=== PATIENT | female | born 1945 | race Caucasian/White ===

== ENCOUNTER → 2019-05-18 10:59 | Outpatient (BNVA) | payer MEDICARE, BC, SELFPAY | PROVIDERS: Family Provider Nurse Practitioner Family; PCP Nurse Practitioner Family; Visit Provider Nurse Practitioner Family | DX: R05 Cough (principal); Z12.31 Encounter for screening mammogram for malignant neoplasm of breast; E11.9 Type 2 diabetes mellitus without complications; E05.90 Thyrotoxicosis, unspecified without thyrotoxic crisis or storm; E78.5 Hyperlipidemia, unspecified; M81.0 Age-related osteoporosis without current pathological fracture; I10 Essential (primary) hypertension; J44.9 Chronic obstructive pulmonary disease, unspecified; J30.2 Other seasonal allergic rhinitis; F41.9 Anxiety disorder, unspecified; F32.9 Major depressive disorder, single episode, unspecified; R59.9 Enlarged lymph nodes, unspecified | CPT/HCPCS: 80053; 80061; 82044; 82306; 83036; 84439; 84443; 84481; 85025 ==

== ENCOUNTER 2019-05-28 12:52 | Outpatient (CLI) | payer MEDICARE, BC, SELFPAY ==
--- NOTE | 2019-05-28 13:30 | CT_ITS ---
WS: [id number] CT scan of the chest with IV contrast, additional two-dimensional coronal and sagittal reconstruction was performed. 05/28/2019 Clinical Data: cough Comparison: CT chest abdomen and pelvis, 01/23/2018. DLP: 600.[address] scans at [facility] use at least one of these dose optimization techniques: automat ed exposure control; mA and/or kV adjustment per patient size (includes targeted exams where dose is matched to clinical indication); or iterative reconstruction. Findings: Is a complex nodule of the left lobe of the thyroid unchanged. There are small cysts in the right lob e of the thyroid. No pneumonia or pneumothorax is seen. No nodules, masses or effusions are seen. The trachea bifurcates normally into the bronchi. The heart size is normal with no pericardial effusion. The pulmonary arterial system and thoracic aorta demons trate no abnormalities or dilatations. There is no axillary or significant mediastinal adenopathy. The upper abdomen shows a small cyst measuring 1.0 cm in the right lobe of the liver unchanged. Minim al atherosclerotic changes of thoracic vertebral bodies are seen. CT/CT chest w con* [id number] Impression: 1. Negative for acute cardiopulmonary disease. 2. Segmental left thyroid nodule and right hepatic lobe cyst.
[2019-05-28] MEDS: iodixanol 320 mg/mL 100mL Btl IV (13:40)
== END 2019-05-28 12:53 | disposition home or self-care (01) ==
LOC: RADWPI 13:00
PROVIDERS: Family Provider Nurse Practitioner Family; PCP Nurse Practitioner Family; Visit Provider Nurse Practitioner Family
DX: E04.1 Nontoxic single thyroid nodule (principal); K76.89 Other specified diseases of liver; R05 Cough
CPT/HCPCS: 71260; Q9967

== ENCOUNTER 2019-09-06 10:19 | Outpatient (CLI) | payer MEDICARE, BC, SELFPAY ==
--- NOTE | 2019-09-06 10:30 | MM_ITS ---
WS: [id number] BILATERAL SCREENING DIGITAL MAMMOGRAM WITH CAD HISTORY: screening mammo COMPARISON: 05/11/2012 Bilateral CC and MLO views submitted. Computer aided detection analyzed. Breast composition: The breasts are heterogeneously dense, which may obscure small masses. No suspici ous masses, microcalcifications or architectural distortion. Numerous coarse calcifications in each b reast have progressed. Benign in appearance. MM/[place] [id number] IMPRESSION: BI-RADS: 2-Benign FOLLOW UP: 1 Year Follow-up
== END 2019-09-06 10:20 | disposition home or self-care (01) ==
LOC: RADSHAW 10:25
PROVIDERS: PCP Nurse Practitioner Family; Visit Provider Nurse Practitioner Family
DX: Z12.31 Encounter for screening mammogram for malignant neoplasm of breast (principal)
CPT/HCPCS: 77067

== ENCOUNTER → 2019-09-09 10:37 | Outpatient (BNVA) | payer MEDICARE, BC, SELFPAY | PROVIDERS: PCP Nurse Practitioner Family; Visit Provider Nurse Practitioner Family | DX: I10 Essential (primary) hypertension (principal); E11.9 Type 2 diabetes mellitus without complications; E78.5 Hyperlipidemia, unspecified; E05.90 Thyrotoxicosis, unspecified without thyrotoxic crisis or storm | CPT/HCPCS: 80053; 80061; 83036; 84443; 85025 ==

== ENCOUNTER → 2019-09-16 15:59 | Outpatient (BNVA) | payer MEDICARE, BC, SELFPAY | PROVIDERS: PCP Nurse Practitioner Family; Visit Provider Nurse Practitioner Family | DX: E87.5 Hyperkalemia (principal); E05.90 Thyrotoxicosis, unspecified without thyrotoxic crisis or storm; F41.9 Anxiety disorder, unspecified; F32.9 Major depressive disorder, single episode, unspecified; J30.2 Other seasonal allergic rhinitis; E78.5 Hyperlipidemia, unspecified; I10 Essential (primary) hypertension; E11.9 Type 2 diabetes mellitus without complications; J44.9 Chronic obstructive pulmonary disease, unspecified; Z68.21 Body mass index [BMI] 21.0-21.9, adult; F17.210 Nicotine dependence, cigarettes, uncomplicated | CPT/HCPCS: 80048 ==

== ENCOUNTER → 2020-02-18 11:36 | Outpatient (BNVA) | payer MEDICARE, BC, SELFPAY | PROVIDERS: PCP Nurse Practitioner Family; Visit Provider Nurse Practitioner Family | DX: E11.9 Type 2 diabetes mellitus without complications (principal); E05.90 Thyrotoxicosis, unspecified without thyrotoxic crisis or storm | CPT/HCPCS: 80053; 80061; 83036; 84439; 84443; 84481; 85025 ==

== ENCOUNTER 2020-04-07 14:10 | Outpatient (CLI) | payer MEDICARE, BC, SELFPAY ==
--- NOTE | 2020-04-07 14:15 | USCV_ITS ---
[place], [place] Age: 74 Gender: F : 1945 Exam Date: 04/07/2020 14:29 Ordering Phys: Frank Uribe M.D ([email or web address]) Technologist: Romelia Servin [place] [facility] [place]: OCCLUSION AND STENOSIS Risk Factors: Previous Vascular Surgery: Right Brachial BP: / Left Brachial BP: / Right Left Velocity (cm/s) Spectral Plaque Velocity (cm/s) Spectral Plaque Syst/Diast Broadening Syst/Diast Broadening 72.20/ 12.40 Prox CCA 60.30 / 13.50 68.40/ 19.40 Mid CCA 55.00 / 14.20 64.50/ 20.50 Distal CCA 47.60 / 14.70 88.45/ 22.20 Prox ICA 101.53/ 30.10 94.30/ 21.30 Mid ICA 71.30 / 23.00 62.50/ 21.80 Distal ICA 48.10 / 17.80 58.80 ECA 117.15 1.38 ICA/CCA 1.98 Antegrade Vertebral Antegrade 56.90/ 12.30 cm/s 33.40/ 8.50 cm/s Bi Subclavian Bi 106.5 76.60 0 FINDINGS moderate heterogeneous irregular plaques at the bifurcations and proximal internal carotid arteries bilaterally Intimal thickening and minimal plaques in the common carotid arteries bilaterally. Antegrade flow in the vertebral arteries bilaterally Normal Doppler flow velocities in the external carotid and subclavian arteries bilaterally CONCLUSIONS Moderate heterogeneous irregular plaques at the bifurcations and proximal internal carotid arteries bilaterally with Doppler characteristics suggestive of less than 50% stenosis. Intimal thickening and minimal plaques in the common carotid arteries bilaterally. No significant stenosis in the vertebral and subclavian arteries Dr Lee Frost MD [facility] (Electronically Signed) Final Date: 14 April 2020 19:23 S
== END 2020-04-07 14:11 | disposition home or self-care (01) ==
LOC: US 14:11
PROVIDERS: PCP Nurse Practitioner Family; Visit Provider Internal Medicine
DX: I65.23 Occlusion and stenosis of bilateral carotid arteries (principal)
CPT/HCPCS: 93880

== ENCOUNTER → 2020-08-17 11:29 | Outpatient (BNVA) | payer MEDICARE, BC, SELFPAY | PROVIDERS: PCP Nurse Practitioner Family; Visit Provider Nurse Practitioner Family | DX: E11.9 Type 2 diabetes mellitus without complications (principal); I10 Essential (primary) hypertension; H91.93 Unspecified hearing loss, bilateral; R05 Cough; E05.90 Thyrotoxicosis, unspecified without thyrotoxic crisis or storm; M81.0 Age-related osteoporosis without current pathological fracture; F41.9 Anxiety disorder, unspecified; F32.9 Major depressive disorder, single episode, unspecified; J30.2 Other seasonal allergic rhinitis; E78.5 Hyperlipidemia, unspecified; J44.9 Chronic obstructive pulmonary disease, unspecified | CPT/HCPCS: 80053; 80061; 83036; 84443; 85025 ==

== ENCOUNTER 2020-08-22 08:14 | Outpatient (CLI) | payer MEDICARE, BC, SELFPAY ==
--- NOTE | 2020-08-22 08:30 | CT_ITS ---
WS: [id number] CT CHEST WITH INTRAVENOUS CONTRAST HISTORY: R05 - Cough TECHNIQUE: Contiguous 5 mm axial imaging performed on the thorax. Coronal and sagittal reformats are submitted. All CT scans at [facility] use at least one of these dose optimization techniq ues: automated exposure control; mA and/or kV adjustment per patient size (includes targeted exams wh ere dose is matched to clinical indication); or iterative reconstruction. CONTRAST: Omnipaque 300; 95 mL IV. DLP: 655.19 mGycm COMPARISON: 05/28/2019 and 01/23/2018 Lungs and central airway: Mild chronic emphysema. No pulmonary mass or nodule. Lungs are hyperinflate d. Pleura: Normal. No pleural effusion. Heart and pericardium: Normal size heart with no pericardial effusion. Mediastinum and yusuf: No mediastinum or hilar adenopathy. Vessels: Very mild atherosclerosis aorta. No aneurysm or dissection. Normal size pulmonary artery. Chest wall and lower neck: Complex cystic nodules in the lower pole of the LEFT thyroid. Largest diam eter 2.1 cm. Additional smaller subcentimeter nodules in the RIGHT lower pole. Upper abdomen: 8 mm cyst RIGHT lobe the liver is stable. Small hiatal hernia. Mild nodularity of the RIGHT adrenal gland measures 8 mm. Stable. Cortical thinning of each kidney. 1.0 cm cyst upper pole L EFT kidney Osseous structures: No destructive process. CT/CT chest w con* [id number] IMPRESSION: 1. Chronic emphysema with no pneumonia or nodules. No adenopathy. 2. Stable complex nodule in the lower pole of each thyroid. 3. Stable nodule in the RIGHT adrenal gland and stable cyst LEFT kidney.
[2020-08-22] MEDS: iohexol 300 mg/mL 100 mL Btl IV (08:59)
== END 2020-08-22 08:15 | disposition home or self-care (01) ==
PROVIDERS: PCP Nurse Practitioner Family; Visit Provider Nurse Practitioner Family
DX: R05 Cough (principal); J43.9 Emphysema, unspecified; E04.1 Nontoxic single thyroid nodule; Q61.01 Congenital single renal cyst
CPT/HCPCS: 71260; Q9967

== ENCOUNTER → 2020-08-28 10:22 | Outpatient (BNVA) | payer MEDICARE, BC, SELFPAY | PROVIDERS: PCP Nurse Practitioner Family; Visit Provider Nurse Practitioner Family | DX: D72.829 Elevated white blood cell count, unspecified (principal) | CPT/HCPCS: 80500; 85025 ==

== ENCOUNTER → 2020-12-14 11:48 | Outpatient (BNVA) | payer MEDICARE, BC, SELFPAY | PROVIDERS: PCP Nurse Practitioner Family; Visit Provider Nurse Practitioner Family | DX: I10 Essential (primary) hypertension (principal); E05.90 Thyrotoxicosis, unspecified without thyrotoxic crisis or storm; E87.5 Hyperkalemia; E11.9 Type 2 diabetes mellitus without complications; Z23 Encounter for immunization | CPT/HCPCS: 80053; 80061; 83036; 84439; 84443; 85025 ==

== ENCOUNTER → 2021-01-02 10:58 | Outpatient (BNVA) | payer MEDICARE, BC, SELFPAY | PROVIDERS: PCP Nurse Practitioner Family; Visit Provider Nurse Practitioner Family | DX: E87.5 Hyperkalemia (principal) | CPT/HCPCS: 80048 ==

== ENCOUNTER → 2021-01-23 09:55 | Outpatient (BNVA) | payer MEDICARE, BC, SELFPAY | PROVIDERS: PCP Nurse Practitioner Family; Visit Provider Nurse Practitioner Family | DX: E87.5 Hyperkalemia (principal) | CPT/HCPCS: 80048 ==

== ENCOUNTER → 2021-04-30 09:54 | Outpatient (BNVA) | payer MEDICARE, BC, SELFPAY | PROVIDERS: PCP Nurse Practitioner Family; Visit Provider Nurse Practitioner Family | DX: E05.90 Thyrotoxicosis, unspecified without thyrotoxic crisis or storm (principal); E11.9 Type 2 diabetes mellitus without complications | CPT/HCPCS: 80053; 80061; 83036; 84439; 84443; 84481; 85025 ==

== ENCOUNTER 2021-06-19 13:36 | Outpatient (CLI) | payer MEDICARE, BC, SELFPAY ==
--- NOTE | 2021-06-19 13:52 | MM_ITS ---
WS: [id number] BILATERAL 3D TOMOSYNTHESIS DIGITAL SCREENING MAMMOGRAPHY WITH CAD CLINICAL INFORMATION: SCREENING HISTORY: Screening mammogram. No current complaints. COMPARISON: None. TECHNIQUE: Bilateral CC and MLO views. FINDINGS: The breasts are composed of heterogeneous fibroglandular density tissue, which can limit the detectio n of small underlying mass lesions. Scattered coarse and dystrophic calcifications. [facility] cifications. Dense parenchymal tissue upper outer LEFT breast is similar in appearance. No suspicious mass, asymmetry, calcifications, or architectural distortion. No evidence of malignancy. MM/[place] [id number] IMPRESSION: BI-RADS: 2-Benign FOLLOW UP: 1 Year Follow-up Recommend return to annual screening mammography.
== END 2021-06-19 13:37 | disposition home or self-care (01) ==
LOC: RAD 13:41
PROVIDERS: PCP Nurse Practitioner Family; Visit Provider Nurse Practitioner Family
DX: Z12.31 Encounter for screening mammogram for malignant neoplasm of breast (principal)
CPT/HCPCS: 77063; 77067

== ENCOUNTER 2021-07-10 12:14 | Outpatient (CLI) | payer MEDICARE, BC, SELFPAY ==
--- NOTE | 2021-07-10 13:00 | XR_ITS ---
WS: [id number] SCREENING DEXA SCAN [employer] CLINICAL INFORMATION: M81.0 - Age-related osteoporosis without current patholog... COMPARISON: CT 04/4018 FINDINGS: The L1-L4 bone mineral density measures 1.230 g/cm2. This corresponds to a T score score of 0.4 and Z score of 2.5. Left femoral neck bone mineral density measures 0.788 (g/cm2). This corresponds to a T score of -1.7 (no units) and Z score of 0.2 (no units). XR/XR DEXA axial skeleton* [id number] IMPRESSION: Normal bone mineralization lumbar spine. Osteopenia LEFT femoral neck. Patient's FRAX calculated 10 year probability for major osteoporotic fracture i s 17.0 % and osteoporotic hip fracture is 5.8%.
== END 2021-07-10 12:15 | disposition home or self-care (01) ==
LOC: RAD 12:22
PROVIDERS: PCP Nurse Practitioner Family; Visit Provider Nurse Practitioner Family
DX: M81.0 Age-related osteoporosis without current pathological fracture (principal); M85.852 Other specified disorders of bone density and structure, left thigh
CPT/HCPCS: 77080

== ENCOUNTER → 2021-08-28 09:37 | Outpatient (BNVA) | payer MEDICARE, BC, SELFPAY | PROVIDERS: PCP Nurse Practitioner Family; Visit Provider Nurse Practitioner Family | DX: E87.5 Hyperkalemia (principal); E05.90 Thyrotoxicosis, unspecified without thyrotoxic crisis or storm; E78.5 Hyperlipidemia, unspecified; I10 Essential (primary) hypertension; E11.9 Type 2 diabetes mellitus without complications | CPT/HCPCS: 80053; 80061; 83036; 84439; 84443; 84481; 85025 ==

== ENCOUNTER → 2021-10-15 08:32 | Outpatient (BNVA) | payer MEDICARE, BC, SELFPAY | PROVIDERS: PCP Nurse Practitioner Family; Visit Provider Nurse Practitioner Family | DX: E05.90 Thyrotoxicosis, unspecified without thyrotoxic crisis or storm (principal) | CPT/HCPCS: 84439; 84443 ==

== ENCOUNTER 2022-01-04 12:22 | Emergency (ER) | payer MEDICARE, BC, SELFPAY ==
[2022-01-04 12:24] VITALS: BP 123/75; PULSE 65; RESP 15; TEMP 36.5; O2SAT 98; BMI 20.7
--- NOTE | 2022-01-04 12:46 | ECG_ITS ---
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 Measurements Intervals [place] Rate: 74 P: 65 SC: 142 QRS: 71 QRSD: 88 T: 73 QT: 428 QTc: 475 Interpretive Statements SINUS RHYTHM Compared to ECG 01/13/2017 03:01:57 ST (T wave) deviation no longer present Electronically Signed On 01-04-2022 15:34:53 CDT by Eulalia Collins M.D. [id number]
--- NOTE | 2022-01-04 12:48 | W.ED.GENADLT ---
HPI - General Adult General: Chief complaint: General Medical Stated complaint: low BP Time Seen by Provider: 01/04/22 12:44 Source: patient Mode of arrival: ambulatory History of Present Illness: 76-year-old female presents emergency room complaining of hypotension. She was seen a couple hours ago in her doctor's office and told her blood pressure was low. She denies any recent change in her blood pressure medication she is on metoprolol 25 daily and she is also on lisinopril 20/12.5 daily and amlodipine 5 mg daily. On arrival here her blood pressure is stable she denies any chest pain shortness of breath lightheadedness or dizziness. Onset (ago): hour(s) Relieving factors: none Exacerbating factors: none Associated symptoms: Deny chest pain, confusion, cough, diaphoresis, decreased appetite, dyspnea, fevers/chills, headache(s), malaise, nausea, rash, palpitations, seizures, short of breath, syncope, vomiting or weakness Treatments prior to arrival: none Review of Systems Const: Denies: fever(s), chills, fatigue, malaise or diaphoresis ENMT: Denies: throat pain, ear or mastoid pain, nasal discharge or nasal congestion Card: Denies: chest pain, palpitations or syncope Resp: Denies: dyspnea GI: Denies: abdominal pain, nausea or vomiting : Denies: flank pain, difficulty voiding, dysuria, urinary frequency or urinary urgency Skin/Breast: Denies: rash Neuro: Denies: headache(s) or confusion PFS ED PFSH: Medical History Carotid stenosis COPD (chronic obstructive pulmonary disease) Diabetes Dyslipidemia (high LDL; low HDL) HTN (hypertension) SOM (obstructive sleep apnea) Peripheral vascular disease Tachycardia Tobacco abuse Surgical History S/P knee replacement LEFT Family History Father CAD (coronary artery disease) Hypertension Stroke Mother CAD (coronary artery disease) Hypertension Hx of CABG Social History Smoking and tobacco status: current every day smoker (< 1PPD) cigarettes Packs smoked per day: 1 Second hand smoke exposure: Yes Alcohol intake: never Lives independently: Yes Household members: children Marital status: / Current occupational status: retired History of recent travel: No Current gender identity: Female Physical Exam Const: GENERAL APPEARANCE: cooperative and comfortable ORIENTATION/CONSCIOUSNESS: Yes awake, Yes oriented to person, Yes oriented to place and Yes oriented to time HENMT: COMMON NORMALS: normocephalic, atraumatic and hearing grossly normal bilaterally HEAD & SCALP: normocephalic and atraumatic Resp: COMMON NORMALS: normal respiratory effort, No retractions, No use of accessory muscles and clear to auscultation bilaterally AUSCULTATION: clear to auscultation bilaterally Cardio: COMMON NORMALS: regular rate, regular rhythm and No murmurs present (Cardio) RATE: regular rate RHYTHM: regular rhythm GI: COMMON NORMALS: Soft to palpation and No hepatosplenomegaly present AUSCULTATION: Yes normoactive bowel sounds PALPATION: Yes Soft to palpation, No Tenderness to palpation present (GI), No Guarding due to palpation present (GI) and Yes No hepatosplenomegaly present Extremity: COMMON NORMALS: normal to inspection, capillary refill normal, no clubbing, cyanosis or edema, no calf tenderness and no pedal edema Neuro: SENSORIUM/ORIENTATION: Yes oriented to person, Yes oriented to place and Yes oriented to time Skin: COMMON NORMALS: no rashes or lesions noted GENERAL SKIN EXAM: no rashes or lesions noted Course Vital Signs: Vital signs: Vital Signs Temperature 97.7 F 01/04/22 12:24 Pulse Rate 87 01/04/22 14:43 Respiratory Rate 16 01/04/22 14:43 Blood Pressure 132/71 01/04/22 14:43 Pulse Oximetry 98 01/04/22 14:43 Oxygen Delivery Me thod 01/04/22 12:24 [facility] [place] - General Adult Medical Decision Making Patient normotensive in the emergency room. Monitored for time labs reviewed. Very slightly hyponatremic at this point though she is asymptomatic no intervention needed. Given her relatively normal blood pressure would not recommend any changes at this time. If we decrease any medication she may develop hypertension for which she is being treated. Recommend that she maintain home blood pressure logs for 7 to 10 days and return to primary care doctor and make adjustments as indicated. Medical Records I reviewed the patient's medical records. Lab Data I reviewed the patient's lab results. : 01/04/22 13:00 01/04/22 13:00 Laboratory Results WBC 11.6 10^3/uL (4.0-10.0) H 01/04/22 13:00 RBC 4.58 10^6/uL (4.1-5.3) 01/04/22 13:00 Hgb 13.9 g/dL (11.5-15.3) 01/04/22 13:00 Hct 41.8 % (37.0-47.0) 01/04/22 13:00 MCV 91.3 fl (81-99) 01/04/22 13:00 MCH 30.3 pg (28.0-34.0) 01/04/22 13:00 MCHC 33.3 g/dL (30.0-36.0) 01/04/22 13:00 RDW 14.6 % (12.1-15.1) 01/04/22 13:00 Plt Count 257 10^3/cmm (130-400) 01/04/22 13:00 MPV 8.8 fL (7.4-10.4) 01/04/22 13:00 Neut % (Auto) 65.2 % 01/04/22 13:00 Lymph % (Auto) 25.8 % 01/04/22 13:00 Butler % (Auto) 7.1 % 01/04/22 13:00 Eos % (Auto) 0.8 % 01/04/22 13:00 Baso % (Auto) 0.7 % 01/04/22 13:00 Neut # (Auto) 7.57 10^3/uL (1.8-7.7) 01/04/22 13:00 Lymph # (Auto) 3.0 10^3/uL (0.8-4.8) 01/04/22 13:00 Butler # (Auto) 0.8 10^3/uL (0.2-0.9) 01/04/22 13:00 Eos # (Auto) 0.1 10^3/uL (0.0-0.8) 01/04/22 13:00 Baso # (Auto) 0.1 10^3/uL (0.0-0.1) 01/04/22 13:00 Nucleated RBC % (auto) 0 % 01/04/22 13:00 Nucleated RBCs # 0.0 /100WBC 01/04/22 13:00 Sodium 127 mmol/L (136-145) L 01/04/22 13:00 Potassium 3.8 mmol/L (3.5-5.1) 01/04/22 13:00 Chloride 87 mmol/L (98-107) L 01/04/22 13:00 Carbon Dioxide 26 mmol/L (22-29) 01/04/22 13:00 Anion Gap 17.8 (5-19) 01/04/22 13:00 BUN 18 mg/dL (8-23) 01/04/22 13:00 Creatinine 0.8 mg/dL (0.5-0.9) 01/04/22 13:00 GFR Calculation Not Reportable 01/04/22 13:00 Glucose 107 mg/dL (65-115) 01/04/22 13:00 Calculated Osmolality 266 mOsm/kg (285-295) L 01/04/22 13:00 Calcium 9.2 mg/dL (8.5-10.5) 01/04/22 13:00 Discharge Plan Discharge Patient Disposition: Home Clinical Impression: Benign essential HTN, Transient hypotension Condition: Stable Prescriptions: No Action aspirin [Adult Low Dose Aspirin] 81 mg tablet,delayed release (DR/EC) 81 mg PO BEDTIME fluticasone propionate [Flonase Allergy Relief] 50 mcg/actuation spray,suspension 2 spray INTRANASAL BID Qty: 15.8 5RF gabapentin 300 mg capsule See Rx Instructions .ROUTE .COMPLEX Qty: 360 1RF Dose Instruction: TAKE ONE CAPSULE BY MOUTH FOUR TIMES DAILY Rx Instructions: 300mg po qam 300mg po qpm and 600mg bedtime albuterol sulfate [Ventolin HFA] 90 mcg/actuation HFA aerosol inhaler 2 puff INHALATION Q6H PRN (Reason: shortness of breath or wheezing) Qty: 8.5 5RF budesonide-formoterol [Symbicort] 160-4.5 mcg/actuation HFA aerosol inhaler 2 puff inhalation BID Qty: 10.2 5RF potassium chloride 20 mEq tablet,ER particles/crystals 20 meq PO DAILY Rx Instructions: (pt not started taking rx filled 12/10/21 90d/s) Vitamin D3 25 mcg (1,000 unit) Capsule 25 mcg PO QPM Thermotabs 287-180-15 mg Tablet 1 tab PO QPM PreserVision AREDS-2 250-90-40-1 mg Capsule 1 tab PO BID atorvastatin 80 mg tablet 80 mg PO QPM lisinopril-hydrochlorothiazide 20-12.5 mg tablet 1 tab PO BID meloxicam 15 mg tablet 15 mg PO DAILY PRN (Reason: arthritis pain) alendronate 70 mg tablet 70 mg PO Q7D Rx Instructions: on amlodipine 5 mg tablet 5 mg PO BEDTIME citalopram 20 mg tablet 20 mg PO QAM buspirone 10 mg tablet 10 mg PO BID montelukast 10 mg tablet 10 mg PO QAM metoprolol succinate 25 mg tablet extended release 24 hr 25 mg PO BEDTIME methimazole 10 mg tablet 10 mg PO QAM Discharge Orders: Discharge ED (Routine); Ordered 01/04/22 Ordered By: Amado Araya Referrals: Carolina Bolden FNP [Primary Care Provider] - Discharge Diet: Usual diet Discharge Activity: Resume usual activity Patient Instructions: Opioid Safety, Pain Management Activity Restrictions/Additional Instructions: Continue take your previously prescribed medications monitor blood pressure home follow-up with your primary care doctor within 7 days. Coding Level of Care Code ED Brushing Operator for Pooja Fwoli Exam Detailed
[2022-01-04 13:06] LABS: Basophils # 0.1 10^3/uL (0.0-0.1); Basophils % 0.7 %; Eosinophils # 0.1 10^3/uL (0.0-0.8); Eosinophils % 0.8 %; Hematocrit 41.8 % (37.0-47.0); Hemoglobin 13.9 g/dL (11.5-15.3); Lymphocytes % 25.8 %; Mean Corpuscular HGB Conc 33.3 g/dL (30.0-36.0); Mean Corpuscular Hemoglobin 30.3 pg (28.0-34.0); Mean Corpuscular Volume 91.3 fl (81-99); Mean Platelet Volume 8.8 fL (7.4-10.4); Monocytes # 0.8 10^3/uL (0.2-0.9); Monocytes % 7.1 %; Neutrophils # 7.57 10^3/uL (1.8-7.7); Neutrophils % 65.2 %; Nucleated Red Blood Cells % 0 %; Platelet Count 257 10^3/cmm (130-400); Red Blood Count 4.58 10^6/uL (4.1-5.3); Red Cell Distribution Width 14.6 % (12.1-15.1); White Blood Count 11.6 10^3/uL (4.0-10.0)
[2022-01-04 13:32] LABS: Anion Gap 17.8 (5-19); Blood Urea Nitrogen 18 mg/dL (8-23); Calcium 9.2 mg/dL (8.5-10.5); Carbon Dioxide 26 mmol/L (22-29); Chloride 87 mmol/L (98-107); Glucose 107 mg/dL (65-115); Osmolality Calculated 266 mOsm/kg (285-295); Potassium 3.8 mmol/L (3.5-5.1); Sodium 127 mmol/L (136-145)
[2022-01-04 14:43] VITALS: BP 132/71; PULSE 87; RESP 16; O2SAT 98
== END 2022-01-04 14:44 | disposition home or self-care (01) ==
PROVIDERS: Emergency Provider Family Medicine; PCP Nurse Practitioner Family
DX: I95.89 Other hypotension (principal); J44.9 Chronic obstructive pulmonary disease, unspecified; I10 Essential (primary) hypertension; Z79.82 Long term (current) use of aspirin; E11.9 Type 2 diabetes mellitus without complications; E78.5 Hyperlipidemia, unspecified; F17.210 Nicotine dependence, cigarettes, uncomplicated
CPT/HCPCS: 36415; 80048; 85025; 93005; 99283

== ENCOUNTER → 2022-03-06 10:30 | Outpatient (BNVA) | payer MEDICARE, BC, SELFPAY | PROVIDERS: PCP Nurse Practitioner Family; Visit Provider Nurse Practitioner Family | DX: E05.90 Thyrotoxicosis, unspecified without thyrotoxic crisis or storm (principal); I10 Essential (primary) hypertension; E11.9 Type 2 diabetes mellitus without complications; E55.9 Vitamin D deficiency, unspecified; M81.0 Age-related osteoporosis without current pathological fracture; F41.9 Anxiety disorder, unspecified; F32.9 Major depressive disorder, single episode, unspecified | CPT/HCPCS: 80053; 80061; 82043; 82306; 83036; 84439; 84443; 85025 ==

== ENCOUNTER → 2022-06-06 17:16 | Outpatient (BNVA) | payer MEDICARE, BC, SELFPAY | PROVIDERS: PCP Nurse Practitioner Family; Visit Provider Nurse Practitioner Family | DX: E05.90 Thyrotoxicosis, unspecified without thyrotoxic crisis or storm (principal); H61.21 Impacted cerumen, right ear; J44.9 Chronic obstructive pulmonary disease, unspecified | CPT/HCPCS: 80053; 84439; 84443 ==

== ENCOUNTER → 2022-08-14 14:26 | Outpatient (BNVA) | payer MEDICARE, BC, SELFPAY | PROVIDERS: PCP Nurse Practitioner Family; Referring Provider Nurse Practitioner Family; Visit Provider Internal Medicine | DX: E07.9 Disorder of thyroid, unspecified (principal); M81.0 Age-related osteoporosis without current pathological fracture; E05.90 Thyrotoxicosis, unspecified without thyrotoxic crisis or storm | CPT/HCPCS: 83516; 84439; 84443; 86376; 86800; 99204 ==

== ENCOUNTER → 2022-10-16 09:21 | Outpatient (BNVA) | payer MEDICARE, BC, SELFPAY | PROVIDERS: PCP Nurse Practitioner Family; Visit Provider Internal Medicine | DX: E05.90 Thyrotoxicosis, unspecified without thyrotoxic crisis or storm (principal); E07.9 Disorder of thyroid, unspecified | CPT/HCPCS: 84439; 84443 ==

== ENCOUNTER → 2022-10-21 12:57 | Outpatient (BNVA) | payer MEDICARE, BC, SELFPAY | PROVIDERS: PCP Nurse Practitioner Family; Visit Provider Internal Medicine | DX: E07.9 Disorder of thyroid, unspecified (principal); M81.0 Age-related osteoporosis without current pathological fracture; E05.90 Thyrotoxicosis, unspecified without thyrotoxic crisis or storm | CPT/HCPCS: 99214 ==

== ENCOUNTER → 2022-11-29 09:53 | Outpatient (BNVA) | payer MEDICARE, BC, SELFPAY | PROVIDERS: PCP Nurse Practitioner Family; Visit Provider Internal Medicine | DX: I77.9 Disorder of arteries and arterioles, unspecified (principal); I10 Essential (primary) hypertension; E11.9 Type 2 diabetes mellitus without complications; J44.9 Chronic obstructive pulmonary disease, unspecified; I73.9 Peripheral vascular disease, unspecified; G47.33 Obstructive sleep apnea (adult) (pediatric); E78.5 Hyperlipidemia, unspecified; Z72.0 Tobacco use; E05.90 Thyrotoxicosis, unspecified without thyrotoxic crisis or storm; Z79.84 Long term (current) use of oral hypoglycemic drugs | CPT/HCPCS: 99214 ==

== ENCOUNTER 2022-12-13 11:49 | Outpatient (CLI) | payer MEDICARE, BC, SELFPAY ==
--- NOTE | 2022-12-13 12:30 | USCV_ITS ---
[place], [place] Age: 77 Gender: F : 1945 Exam Date: 12/13/2022 12:18 Ordering Phys: Frank Uribe M.D ([email or web address]) Technologist: ROJAS [place]am [place] [facility] [place]: Stenosis Risk Factors: Previous Vascular Surgery: Right Brachial BP: / Left Brachial BP: / Right Left Velocity (cm/s) Spectral Plaque Velocity (cm/s) Spectral Plaque Syst/Diast Broadening Syst/Diast Broadening 79.70/ 12.20 Prox CCA 58.80 / 12.20 63.80/ 9.40 Mid CCA 49.40 / 10.60 47.00/ 9.50 Distal CCA 44.70 / 15.30 81.60/ 22.50 Prox ICA 64.90 / 12.20 96.60/ 22.50 Mid ICA 114.00/ 24.70 73.90/ 22.10 Distal ICA 57.30 / 22.20 59.80 ECA 164.10 1.21 ICA/CCA 1.94 Antegrade Vertebral Antegrade 57.30/ 15.40 cm/s 45.80/ 13.80 cm/s Tri Subclavian Tri 110.5 123.0 0 0 FINDINGS Comp 2020 ICA velocities are stable CONCLUSIONS Multnodular thyroid partially visualized. F/u recommended with thyroid US Dense plaque in the proximal to mid RIGHTsubclavian artery with moderate to severe stenosis. Recommend further evaluation with CTA or right upper extremity US. Distal vessel not included on this study. Right ICA stenosis <50%. Moderate calcified atheromatous plaque right carotid bulb/ICA extending into mid ICA. Left ICA stenosis <50%. Moderate calcified atheromatous plaque left carotid bulb/ICA. Intimal thickening in the common carotid arteries and internal carotid arteries bilaterally. Normal antegrade Doppler flow noted in the right vertebral artery. Normal antegrade Doppler flow noted in the left vertebral artery. Rj Larios MD (Electronically Signed) Final Date: 13 December 2022 13:09 S
== END 2022-12-13 11:50 | disposition home or self-care (01) ==
LOC: RAD 11:50
PROVIDERS: PCP Nurse Practitioner Family; Visit Provider Internal Medicine
DX: I65.23 Occlusion and stenosis of bilateral carotid arteries (principal)
CPT/HCPCS: 93880

== ENCOUNTER 2023-01-17 15:33 | Outpatient (CLI) | payer MEDICARE, BC, SELFPAY ==
--- NOTE | 2023-01-17 15:35 | US_ITS ---
WS: [id number] THYROID ULTRASOUND HISTORY: E04.1 - Nontoxic single thyroid nodule COMPARISON: 11/18/2016 Right lobe: 1.6 cm x 1.8 cm x 5.0 cm (w x ap x l). Volume: 7.2 cm3. Top normal sized gland. Several colloid cysts are noted throughout the gland. No increased vascularit y. Left lobe: 2.4 cm x 2.3 cm x 5.4 cm (w x ap x l). Volume: 15.4 cm3. Normal sized gland. Solid mass. Predominantly solid mass with a few cystic components centered in the mid gland. There are a few echogenic foci scattered throughout this large nodule. Large mass measure s 2.6 x 1.6 x 3.3 cm. There is an additional smaller mass which is a spongiform nodule in the mid gla nd measuring 0.9 x 0.7 x 1.4 cm. Isthmus: 0.3 cm. IMPRESSION: 1. TI-RADS 4: Mixed but probably solid nodule mid LEFT thyroid. Suggest fine-needle aspiration for cy tology. 2. Colloid cysts RIGHT thyroid.
== END 2023-01-17 15:34 | disposition home or self-care (01) ==
LOC: RAD 15:34
PROVIDERS: PCP Nurse Practitioner Family; Visit Provider Nurse Practitioner Family
DX: E04.2 Nontoxic multinodular goiter (principal); E04.1 Nontoxic single thyroid nodule
CPT/HCPCS: 76536

== ENCOUNTER → 2023-01-22 09:38 | Outpatient (BNVA) | payer MEDICARE, BC, SELFPAY | PROVIDERS: PCP Nurse Practitioner Family; Visit Provider Nurse Practitioner Family | DX: E11.9 Type 2 diabetes mellitus without complications (principal); I10 Essential (primary) hypertension; E04.1 Nontoxic single thyroid nodule | CPT/HCPCS: 80053; 80061; 83036; 84439; 84443; 85025 ==

== ENCOUNTER 2023-01-28 11:35 | Outpatient (CLI) | payer MEDICARE, BC, SELFPAY ==
--- NOTE | 2023-01-28 12:45 | US_ITS ---
WS: [email or web address] ULTRASOUND THYROID FNA CLINICAL INFORMATION: E04.1 - Nontoxic single thyroid nodule TECHNIQUE: Ultrasound-guided FNA FINDINGS: The procedure including risks, benefits, and complications were discussed with the patient who agreed to proceed. Timeout was performed. Using sterile technique patient was prepped and draped in usual sterile fashion. After 1% lidocaine, using ultrasound guidance, a 25-gauge needle was advanc ed into the LEFT thyroid nodule. 5 passes were made with active aspiration. Pathology was present for slide preparation. No immediate complications. Patient remained in the ultrasound suite 20 minutes postprocedure with intermittent ultrasound to ens ure no hematoma. No hematoma 10 minutes postprocedure. IMPRESSION: Uncomplicated ultrasound-guided thyroid FNA
== END 2023-01-28 11:36 | disposition home or self-care (01) ==
LOC: RAD 11:35
PROVIDERS: PCP Nurse Practitioner Family; Visit Provider Nurse Practitioner Family
DX: E04.1 Nontoxic single thyroid nodule (principal)
CPT/HCPCS: 10005; 88173

== ENCOUNTER → 2023-04-16 09:58 | Outpatient (BNVA) | payer MEDICARE, BC, SELFPAY | PROVIDERS: PCP Nurse Practitioner Family; Visit Provider Internal Medicine | DX: E04.1 Nontoxic single thyroid nodule (principal); E07.9 Disorder of thyroid, unspecified; M81.0 Age-related osteoporosis without current pathological fracture; E05.90 Thyrotoxicosis, unspecified without thyrotoxic crisis or storm | CPT/HCPCS: 80053; 84439; 84443; 84480 ==

== ENCOUNTER → 2023-04-21 08:38 | Outpatient (BNVA) | payer MEDICARE, BC, SELFPAY | PROVIDERS: PCP Nurse Practitioner Family; Visit Provider Internal Medicine | DX: E07.9 Disorder of thyroid, unspecified (principal); M81.0 Age-related osteoporosis without current pathological fracture; E05.90 Thyrotoxicosis, unspecified without thyrotoxic crisis or storm; E04.2 Nontoxic multinodular goiter | CPT/HCPCS: 99214 ==

== ENCOUNTER 2023-06-27 10:09 | Oncology outpatient (recurring) (ONCR) | payer MEDICARE, BC, SELFPAY ==
[2023-06-27] MEDS: denosumab 60 mg SDV SUBCUT (10:21)
[2023-06-27 10:23] VITALS: BP 145/75; PULSE 74; RESP 16; O2SAT 94
== END 2023-07-08 23:59 | disposition home or self-care (01) ==
PROVIDERS: PCP Nurse Practitioner Family; Visit Provider Nurse Practitioner Family
DX: Z53.9 Procedure and treatment not carried out, unspecified reason (principal); M81.0 Age-related osteoporosis without current pathological fracture; Z79.899 Other long term (current) drug therapy
CPT/HCPCS: 96372; J0897

== ENCOUNTER 2023-07-14 12:43 | Outpatient (CLI) | payer MEDICARE, BC, SELFPAY ==
--- NOTE | 2023-07-14 13:00 | XR_ITS ---
WS: [id number] DEXA (DUAL ENERGY X-RAY ABSORPTIOMETRY) Bone mineral density was performed using a [employer] machine. HISTORY: osteoporosis COMPARISON: 07/10/2021 Lumbar spine BMD (L1-L4): 1.374 g/cm2 T score: 1.6 Z score: 3.7 Total hip BMD: Left: 0.805 (g/cm2). T score: -1.6 (no units) Z score: 0.5 (no units) Left forearm BMD: 0.471 g/cm2. T score: -4.6 Z score: -2.1 10 year probability of a major osteoporotic fracture is 20.2%. Compared to the prior study from 07/10/2021. Lumbar spine bone mineral density has increased by 14.3%. LEFT hip bone mineral density has increased by 2.2%. XR/XR DEXA axial skeleton* [id number] IMPRESSION: OSTEOPOROSIS based upon the WHO classification for females. Significant increase in bone mineral density within the lumbar spine and LEFT h ip. Increased bone mineral density in the lumbar spine is probably falsely elev ated due to increasing sclerosis along the endplates.
[2023-07-14 13:47] LABS: Calcium 9.1 mg/dL (8.5-10.5); Parathyroid Hormone 40.8 pg/mL (15-65)
[2023-07-14 13:56] LABS: 25 Hydroxy Vitamin D 65 ng/mL (30-100); Alanine Aminotransferase 14 U/L (0-33); Albumin Level 4.2 g/dL (3.5-5.2); Alkaline Phosphatase 68 U/L (35-105); Anion Gap 11.8 (5-19); Aspartate Amino Transferase 15 U/L (0-32); Blood Urea Nitrogen 15 mg/dL (8-23); Calcium 8.8 mg/dL (8.5-10.5); Carbon Dioxide 32 mmol/L (22-29); Chloride 99 mmol/L (98-107); Globulin 2.7 g/dL (1.3-4.6); Glucose 88 mg/dL (65-115); Osmolality Calculated 288 mOsm/kg (285-295); Potassium 3.8 mmol/L (3.5-5.1); Sodium 139 mmol/L (136-145); Thyroid Stimulating Hormone 1.14 uIU/mL (0.27-4.20); Total Bilirubin 0.4 mg/dL (0.15-1.2); Total Protein 6.9 g/dL (6.6-8.7)
[2023-07-14 14:34] LABS: Free T4 Free Thyroxine 1.03 ng/dL (0.82-1.77)
[2023-07-15 10:14] LABS: T3 Total 109 ng/dL (76-181)
== END 2023-07-14 12:44 | disposition home or self-care (01) ==
LOC: RAD 12:43
PROVIDERS: PCP Nurse Practitioner Family; Visit Provider Internal Medicine
DX: M81.0 Age-related osteoporosis without current pathological fracture (principal); E07.9 Disorder of thyroid, unspecified; E05.90 Thyrotoxicosis, unspecified without thyrotoxic crisis or storm; E04.2 Nontoxic multinodular goiter
CPT/HCPCS: 36415; 77080; 80053; 82306; 82310; 83970; 84439; 84443; 84480

== ENCOUNTER → 2023-07-16 08:36 | Outpatient (BNVA) | payer MEDICARE, BC, SELFPAY | PROVIDERS: PCP Nurse Practitioner Family; Visit Provider Internal Medicine | DX: E07.9 Disorder of thyroid, unspecified (principal); M81.0 Age-related osteoporosis without current pathological fracture; E04.2 Nontoxic multinodular goiter; E05.90 Thyrotoxicosis, unspecified without thyrotoxic crisis or storm | CPT/HCPCS: 99214 ==

== ENCOUNTER → 2023-07-28 09:57 | Outpatient (BNVA) | payer MEDICARE, BC, SELFPAY | PROVIDERS: PCP Nurse Practitioner Family; Visit Provider Nurse Practitioner Family | DX: I10 Essential (primary) hypertension (principal); I65.23 Occlusion and stenosis of bilateral carotid arteries; F17.210 Nicotine dependence, cigarettes, uncomplicated | CPT/HCPCS: 99214 ==

== ENCOUNTER → 2023-08-27 13:09 | Outpatient (BNVA) | payer MEDICARE, BC, SELFPAY | PROVIDERS: PCP Nurse Practitioner Family; Visit Provider Nurse Practitioner Family | DX: E11.9 Type 2 diabetes mellitus without complications (principal) | CPT/HCPCS: 80053; 80061; 82607; 83036; 85025 ==

== ENCOUNTER 2023-09-04 09:56 | Outpatient (CLI) | payer MEDICARE, BC, SELFPAY ==
--- NOTE | 2023-09-04 10:15 | USCV_ITS ---
[place], [place] Age: 77 Gender: F : 1945 Exam Date: 09/04/2023 10:03 Ordering Phys: Carolina Bolden SOFTWARE CONFIGURATION SPECIALIST Technologist: ROJAS [place] [facility] [place]: LE pain Risk Factors: Previous Vascular Surgery: RIGHT LEFT BP: 157.0 / 81.00 BP: 130.0/ 77.00 0 0 Waveform Velocity (cm/s) Velocity (cm/s) Waveform Biphasic 123.0 Iliac Prox Biphasic 132.3 Iliac Mid Biphasic 152.2 Iliac Distal Biphasic 156.0 AR[employer] HELICOPTER PILOT Biphasic 189.0 SFA Prox Biphasic 137.0 SFA Mid Biphasic 150.0 SFA Dist Biphasic 55.0 POP Biphasic 25.0 PROGRAM AND RESEARCH COORDINATOR Biphasic 39.0 DPA 0.8 IZABELA FINDINGS Mild to moderate diffuse plaque in the iliac, femoral and popliteal arteries bilaterally Biphasic arterial Doppler waveforms throughout Resting IZABELA of 0.8 on the right side CONCLUSIONS 1. Abnormal resting IZABELA suggestive of mild peripheral artery disease on the right side 2. Mild to moderate diffuse plaque in the iliac, femoral and popliteal arteries on the right side Dr Lee Frost MD [facility] (Electronically Signed) Final Date: 04 September 2023 22:30 S
== END 2023-09-04 09:57 | disposition home or self-care (01) ==
LOC: RAD 09:56
PROVIDERS: PCP Nurse Practitioner Family; Visit Provider Nurse Practitioner Family
DX: I70.201 Unspecified atherosclerosis of native arteries of extremities, right leg (principal); I70.221 Atherosclerosis of native arteries of extremities with rest pain, right leg
CPT/HCPCS: 80053; 80061; 82607; 83036; 85025; 93926

== ENCOUNTER 2023-09-23 07:01 | Oncology outpatient (recurring) (ONCR) | payer MEDICARE, BC, SELFPAY ==
--- NOTE | 2023-09-23 07:15 | USCV_ITS ---
[place], [place] Age: 77 Gender: F : 1945 Exam Date: 09/23/2023 07:05 Ordering Phys: Carolina Bolden METALLURGICAL ENGINEERING TECHNICIAN METALLURGICAL ENGINEERING TECHNICIAN Technologist: DORIS Exam Location: [facility] [place] Indication: RLE PAIN HISTORY: Lower extremity pain. PROCEDURES: Venous duplex imaging was performed in only the right lower extremity. The following venous structures were evaluated: common femoral vein, profunda vein, proximal portion of the greater saphenous vein, superficial femoral vein, and the popliteal vein. In addition, the posterior tibial and peroneal trunk were evaluated. Serial compression, augmentation maneuvers, and spectral Doppler flow evaluation were performed. FINDINGS: No evidence of DVT seen in any vessel visualized at this time. CONCLUSIONS No evidence of right lower extremity DVT. Rj Larios MD (Electronically Signed) Final Date: 23 September 2023 09:10 S
== END 2023-10-08 23:59 | disposition home or self-care (01) ==
LOC: RAD 07:01 → ONCMED 07:29
PROVIDERS: PCP Nurse Practitioner Family; Visit Provider Nurse Practitioner Family
DX: M79.661 Pain in right lower leg (principal)
CPT/HCPCS: 93971

== ENCOUNTER 2023-11-11 14:54 | Outpatient (CLI) | payer MEDICARE, BC, SELFPAY ==
--- NOTE | 2023-11-11 14:57 | XRR_ITS ---
PROCEDURE INFORMATION: Exam: XR Chest Exam date and time: 11/11/2023 3:10 PM Age: 78 years old Clinical indication: Cough and wheezing; Additional info: R05.9 - cough, unspecified TECHNIQUE: Imaging protocol: Radiologic exam of the chest. Views: 2 views. COMPARISON: CT chest w con* [id number] 08/22/2020 8:57 AM FINDINGS: Airway: Airways are patent. Lungs: Lung hyperexpansion, favoring COPD. Lung hyperlucency, favoring emphysema. No consolidations. Pleural spaces: No pleural effusions or pneumothorax. Heart/Mediastinum: No cardiomegaly. Vasculature: Calcified aortic knob. Bones/joints: No acutely displaced fractures. Mild multilevel degenerative changes of the spine. Soft tissues: No acute soft tissue findings. XR/XR chest 2V* [id number] IMPRESSION: No acute thoracic pathology.
--- NOTE | 2023-11-11 14:57 | XRR_ITS ---
PROCEDURE INFORMATION: Exam: XR Left Hip Exam date and time: 11/11/2023 3:10 PM Age: 78 years old Clinical indication: Pain and injury or trauma; Blunt trauma (contusions or hematomas); Left hip; Prior surgery; Surgery date: 6+ months; Surgery type: RT hip replacement; Patient HX: Lt hip pain since fall 2 weeks ago, mostly posterior and lateral; Additional info: M25.552 - pain in left hip TECHNIQUE: Imaging protocol: Radiologic exam of the left hip. Views: 2 or 3 views hip with pelvis when performed. COMPARISON: CT chest abdpel w/*[id number] 01/23/2018 10:02 AM FINDINGS: Bones/joints: Complete right hip arthroplasty without complications. There are severe degenerative changes of the sacroiliac joints. Mild osteoarthritis of the left hip joint. No acutely displaced fractures. No joint dislocation. No aggressive osseous lesions. Bone demineralization. Soft tissues: No acute soft tissue findings. Vasculature: Moderate atherosclerotic calcification of the arterial vasculature. XR/XR hip LT 2-3V wo/w pel* [id number] IMPRESSION: No acute skeletal pathology.
== END 2023-11-11 14:55 | disposition home or self-care (01) ==
LOC: RAD 14:55
PROVIDERS: PCP Nurse Practitioner Family; Visit Provider Nurse Practitioner Family
DX: M16.12 Unilateral primary osteoarthritis, left hip (principal); W19.XXXA Unspecified fall, initial encounter; Z96.641 Presence of right artificial hip joint; M85.851 Other specified disorders of bone density and structure, right thigh; J43.0 Unilateral pulmonary emphysema [MacLeod's syndrome]; J98.4 Other disorders of lung; I70.0 Atherosclerosis of aorta
CPT/HCPCS: 71046; 73502

== ENCOUNTER 2024-01-28 13:04 | Outpatient (CLI) | payer MEDICARE, BC, SELFPAY ==
--- NOTE | 2024-01-28 13:30 | USR_ITS ---
PROCEDURE INFORMATION: Exam: US Soft Tissue Head and Neck, TI-RADS Exam date and time: 01/28/2024 1:43 PM Age: 78 years old Clinical indication: Condition or disease; Thyroid disorder; Other: Thyroid nodules; Additional info: Thyroid nodules, include tirads TECHNIQUE: Imaging protocol: Real-time ultrasound scan of the neck with image documentation. Exam focused on the thyroid. COMPARISON: US biopsy/FNA thyroid [id number] 01/28/2023 12:53 PM FINDINGS: Right thyroid lobe: Not enlarged. Multiple cysts are again seen in the right lower lobe. Left thyroid lobe: Not enlarged. Multiple cysts are again seen in the left thyroid lobe. Isthmus: Not thickened. Thyroid nodule 1 Size: 3.2 cm (previously 3.4 cm) Thyroid nodule 1 Location: Mid left thyroid lobe Thyroid nodule 1 Composition: Mixed cystic and solid Thyroid nodule 1 Echogenicity: Hypoechoic Thyroid nodule 1 Shape: Wider than taller Thyroid nodule 1 Margins: Smooth Thyroid nodule 1 Echogenic foci: No Thyroid nodule 1 Points: 3 Thyroid nodule 2 Size: 1.3 cm (previously 1.4 cm) Thyroid nodule 2 Location: Upper left thyroid lobe Thyroid nodule 2 Composition: Mixed cystic and solid Thyroid nodule 2 Echogenicity: Hypoechoic Thyroid nodule 2 Shape: Wider than taller Thyroid nodule 2 Margins: Smooth Thyroid nodule 2 Echogenic foci: No Thyroid nodule 2 Points: 3 Lymph nodes: No enlarged nodes. US/US thyroid [id number] IMPRESSION: 1. Unchanged previously biopsied mid left thyroid lobe nodule measuring 3.2 cm, with TI-RADS 3 imaging characteristics. 2. Unchanged upper left thyroid lobe nodule measuring 1.3 cm, with TI-RADS 3 imaging characteristics. No FNA.
== END 2024-01-28 13:05 | disposition home or self-care (01) ==
LOC: RAD 13:06
PROVIDERS: PCP Nurse Practitioner Family; Visit Provider Internal Medicine
DX: E04.2 Nontoxic multinodular goiter (principal)
CPT/HCPCS: 76536

== ENCOUNTER 2024-02-12 09:39 | Outpatient (CLI) | payer MEDICARE, BC, SELFPAY ==
[2024-02-12 10:57] LABS: 25 Hydroxy Vitamin D 53 ng/mL (30-100); Alanine Aminotransferase 16 U/L (0-33); Alkaline Phosphatase 60 U/L (35-105); Anion Gap 11.6 (5-19); Aspartate Amino Transferase 19 U/L (0-32); Blood Urea Nitrogen 14 mg/dL (8-23); Calcium 10.1 mg/dL (8.5-10.5); Carbon Dioxide 33 mmol/L (22-29); Chloride 97 mmol/L (98-107); Globulin 2.7 g/dL (1.3-4.6); Glucose 130 mg/dL (65-115); Osmolality Calculated 286 mOsm/kg (285-295); Potassium 4.6 mmol/L (3.5-5.1); Sodium 137 mmol/L (136-145); Thyroid Stimulating Hormone 1.49 uIU/mL (0.27-4.20); Total Bilirubin 0.4 mg/dL (0.15-1.2); Total Protein 6.7 g/dL (6.6-8.7)
[2024-02-12 14:30] LABS: Free T4 Free Thyroxine 0.91 ng/dL (0.82-1.77)
== END 2024-02-12 09:40 | disposition home or self-care (01) ==
LOC: LAB 09:40
PROVIDERS: PCP Nurse Practitioner Family; Visit Provider Internal Medicine
DX: M81.0 Age-related osteoporosis without current pathological fracture (principal); E07.9 Disorder of thyroid, unspecified; E04.2 Nontoxic multinodular goiter; E05.90 Thyrotoxicosis, unspecified without thyrotoxic crisis or storm
CPT/HCPCS: 36415; 80053; 82306; 84439; 84443

== ENCOUNTER 2024-03-25 13:07 | Oncology outpatient (recurring) (ONCR) | payer MEDICARE, BC, SELFPAY ==
[2024-03-25] MEDS: denosumab 60 mg SDV SUBCUT (13:45)
== END 2024-04-09 23:59 | disposition home or self-care (01) ==
LOC: ONCMED 13:08
PROVIDERS: PCP Nurse Practitioner Family; Visit Provider Nurse Practitioner Family
DX: M81.0 Age-related osteoporosis without current pathological fracture (principal); Z79.899 Other long term (current) drug therapy
CPT/HCPCS: 96372; J0897

== ENCOUNTER → 2024-05-19 09:42 | Outpatient (BNVA) | payer MEDICARE, BC, SELFPAY | PROVIDERS: PCP Nurse Practitioner Family; Visit Provider Nurse Practitioner Family | DX: R05.9 Cough, unspecified (principal); E05.90 Thyrotoxicosis, unspecified without thyrotoxic crisis or storm; E87.5 Hyperkalemia; I70.0 Atherosclerosis of aorta | CPT/HCPCS: 71046; 80053; 80061; 83036; 85025 ==

== ENCOUNTER → 2024-06-09 11:02 | Outpatient (BNVA) | payer MEDICARE, BC, SELFPAY | PROVIDERS: PCP Nurse Practitioner Family; Visit Provider Nurse Practitioner Family | DX: J44.9 Chronic obstructive pulmonary disease, unspecified (principal) | CPT/HCPCS: 80053; 85025 ==

== ENCOUNTER 2024-07-14 08:49 | Outpatient (CLI) | payer MEDICARE, BC, SELFPAY ==
[2024-07-14 09:21] VITALS: PULSE 104; RESP 20; O2SAT 93
[2024-07-14] MEDS: albuterol 2.5 mg/3 mL Neb INHALATION (09:21)
== END 2024-07-14 08:50 | disposition home or self-care (01) ==
LOC: RT 08:51
PROVIDERS: PCP Nurse Practitioner Family; Visit Provider Nurse Practitioner Family
DX: J44.9 Chronic obstructive pulmonary disease, unspecified (principal); J98.8 Other specified respiratory disorders
CPT/HCPCS: 94060; 94618; 94726; 94729; J7613

== ENCOUNTER 2024-08-17 08:53 | Outpatient (CLI) | payer MEDICARE, BC, SELFPAY ==
[2024-08-17 10:46] LABS: Alanine Aminotransferase 12 U/L (0-33); Albumin Level 3.7 g/dL (3.5-5.2); Alkaline Phosphatase 57 U/L (35-105); Aspartate Amino Transferase 16 U/L (0-32); Blood Urea Nitrogen 12 mg/dL (8-23); Calcium 9.2 mg/dL (8.5-10.5); Carbon Dioxide 23 mmol/L (22-29); Chloride 95 mmol/L (98-107); Globulin 2.7 g/dL (1.3-4.6); Glucose 117 mg/dL (65-115); Osmolality Calculated 275 mOsm/kg (285-295); Sodium 132 mmol/L (136-145); Thyroid Stimulating Hormone 2.17 uIU/mL (0.27-4.20); Total Bilirubin 0.4 mg/dL (0.15-1.2); Total Protein 6.4 g/dL (6.6-8.7)
[2024-08-17 10:55] LABS: Anion Gap 17.7 (5-19); Potassium 3.7 mmol/L (3.5-5.1)
[2024-08-17 11:30] LABS: Free T4 Free Thyroxine 1.02 ng/dL (0.82-1.77)
[2024-08-18 11:25] LABS: T3 Total 139 ng/dL (76-181)
== END 2024-08-17 08:54 | disposition home or self-care (01) ==
LOC: LAB 08:55
PROVIDERS: PCP Nurse Practitioner Family; Visit Provider Internal Medicine
DX: E07.9 Disorder of thyroid, unspecified (principal); M81.0 Age-related osteoporosis without current pathological fracture; E05.90 Thyrotoxicosis, unspecified without thyrotoxic crisis or storm; E04.2 Nontoxic multinodular goiter
CPT/HCPCS: 36415; 80053; 82306; 84439; 84443; 84480; 99214

== ENCOUNTER → 2024-08-30 10:53 | Outpatient (BNVA) | payer MEDICARE, BC, SELFPAY | PROVIDERS: PCP Nurse Practitioner Family; Visit Provider Internal Medicine | DX: M81.0 Age-related osteoporosis without current pathological fracture (principal) | CPT/HCPCS: 82306 ==

== ENCOUNTER 2024-09-22 11:58 | Oncology outpatient (recurring) (ONCR) | payer MEDICARE, BC, SELFPAY ==
[2024-09-22] MEDS: denosumab 60 mg SDV SUBCUT (12:36)
[2024-09-22 12:45] VITALS: BP 110/70; PULSE 78; RESP 16; O2SAT 94
== END 2024-10-07 23:59 | disposition home or self-care (01) ==
PROVIDERS: PCP Nurse Practitioner Family; Visit Provider Nurse Practitioner Family
DX: M81.0 Age-related osteoporosis without current pathological fracture (principal); Z79.899 Other long term (current) drug therapy
CPT/HCPCS: 96372; J0897

== ENCOUNTER → 2024-10-04 15:20 | Outpatient (BNVA) | payer MEDICARE, BC, SELFPAY | PROVIDERS: PCP Nurse Practitioner Family; Visit Provider Internal Medicine | DX: M81.0 Age-related osteoporosis without current pathological fracture (principal); E04.2 Nontoxic multinodular goiter; E05.90 Thyrotoxicosis, unspecified without thyrotoxic crisis or storm; E07.9 Disorder of thyroid, unspecified | CPT/HCPCS: 80053; 82306; 84439; 84443; 84480 ==

== ENCOUNTER → 2025-03-09 12:47 | Outpatient (BNVA) | payer MEDICARE, BC, SELFPAY | PROVIDERS: PCP Nurse Practitioner Family; Visit Provider Nurse Practitioner Family | DX: M81.0 Age-related osteoporosis without current pathological fracture (principal); G62.9 Polyneuropathy, unspecified; E04.1 Nontoxic single thyroid nodule; E87.5 Hyperkalemia; E11.9 Type 2 diabetes mellitus without complications; E05.90 Thyrotoxicosis, unspecified without thyrotoxic crisis or storm | CPT/HCPCS: 80053; 80061; 82306; 82607; 83036; 84443; 85025 ==